=== PATIENT | female | born 1935 | race Caucasian/White ===

== ENCOUNTER 2018-03-14 09:12 | Emergency (ER) | payer OTHER ==
[2018-03-14 09:27] VITALS: BP 195/77; TEMP 97.8; BMI 24.0
--- NOTE | 2018-03-14 09:51 | ED.PDOC ---
General ED Provider: Dr. ASHLEY BURTON Chief Complaint: Hypertension Stated Complaint: Problems with BP elevation. Apparently given Clonidine to use as needed for BP elevation which takes sporadically when BP becomes elevated. Expresses frustation oven problems with her BP and her treatment by her PCP in [facility]. Has been to several ERs over past several days for treatment.Stated despite taking her prescribed meds she has taken clonidine periodically but this does not keep her BP controlled. States she taked Coreg 3.125 mg bid and Nifedipine 60 mg daily and prn clonidine. Time Seen by Physician: 09:30 Mode of Arrival: Ambulance Information Source: Patient, EMT Exam Limitations: No limitations Primary Care Provider: NICKTEODORO STRICKLAND Seen Within Last 72 Hours for Same Complaint By: ED Nursing and Triage Documentation Reviewed and Agree: Yes Reviewed sepsis parameters & appropriate labs ordered?: Yes System Inflammatory Response Syndrome: Not Applicable Sepsis Protocol: For patient's 13 years and over: Temp is 96.8 and below OR 101 and greater Pulse >90 BPM Resp >20/minute Acutely Altered Mental Status Are patient's symptoms suggestive of a new infection, such as: -Pneumonia -Skin, Soft Tissue -Endocarditis -UTI -Bone, Joint Infection -Implantable Device -Acute Abdominal Infection -Wound Infection -Meningitis -Blood Stream Catheter Infection -Unknown Cardiovascular Complaint Exam - Hypertension Complaint/Exam Onset/Duration: for several years Symptoms Are: Still present Timing: Intermittent (8 AM today 195/89 ; 6:55 AM 170/74 HR 71; 9 PM yesterday 145/58 HR 72;) Aggravating: Reports: Exertion Alleviating: Reports: None Associated Signs and Symptoms: Reports: Anxiety. Denies: Chest pain, Vision changes, Recent stress, Headache, Numbness, Tingling, Weakness, Dizziness, Short of air, Swelling Cardiac Risk Factors: Reports: Hypertension, Diabetes, Family history Recent Change in Medications: Yes A/V [place]: No Papilledema Present: No JVD Present: No Carotid Bruit Present: No Femoral Pulses Bounding: No Differential Diagnoses: Hypertension Review of Systems - Review Of Systems Constitutional: Reports: Weakness Eyes: Reports: No symptoms Ears, Nose, Mouth, Throat: Reports: No symptoms Respiratory: Reports: No symptoms Cardiac: Reports: No symptoms GI: Reports: No symptoms : Reports: No symptoms Musculoskeletal: Reports: No symptoms Skin: Reports: No symptoms Neurological: Reports: No symptoms Endocrine: Reports: No symptoms Hematologic/Lymphatic: Reports: No symptoms All Other Systems: Reviewed and Negative Past Medical History - Past Medical History Endocrine: Reports: Unknown Cardiovascular: Reports: Hypertension Respiratory: Reports: Unknown Hematological: Reports: Unknown Gastrointestinal: Reports: Unknown Genitourinary: Reports: Unknown Neuro/Psych: Reports: Unknown Musculoskeletal: Reports: Unknown Cancer: Reports: Unknown Last Menstrual Period: unknown - Surgical History General Surgical History: Reports: Unknown - Family History Family History: Reports: Unknown - Social History Smoking Status: Never smoker Hx Substance Use: No Alcohol Screening: None Lives: Alone Physical Exam - Physical Exam Appearance: Well-appearing, No pain distress, Well-nourished Ill-appearing: None Pain Distress: None Eyes: ANTHONY, EOMI, Conjunctiva clear ENT: Ears normal, Nose normal, Oropharynx normal Respiratory: Airway patent, Breath sounds clear, Breath sounds equal, Respirations nonlabored Cardiovascular: RRR, Pulses normal, No rub, No murmur GI/: Soft, Nontender, No masses, Bowel sounds normal, No Organomegaly Musculoskeletal: Normal strength, ROM intact, No edema, No calf tenderness Skin: Warm, Dry, Normal color Neurological: Sensation intact, Motor intact, Reflexes intact, Cranial nerves intact, Alert, Oriented Psychiatric: Affect appropriate, Mood appropriate Re-Evaluation - Re-Evaluation Time of Re-Evaluation: 13:30 Status: Improved Vital Signs Stable: Yes Appearance: NAD Lungs: Clear Skin: Warm and Dry Neuro: Alert and Oriented X3 CV: RRR Critical Care Note - Critical Care Note Total Time (mins): 60 Course - Course Hematology/Chemistry: 03/14/18 09:55 03/14/18 09:55 Orders, Labs, Meds: Lab Review 03/14/18 03/14/18 03/14/18 09:55 09:55 10:50 WBC 11.74 H RBC 4.47 Hgb 12.6 Hct 37.4 MCV 83.7 MCH 28.2 MCHC 33.7 RDW Coeff of Dione 13.5 Plt Count 344 Immature Gran % (Auto) 0.3 Neut % (Auto) 80.3 Lymph % (Auto) 12.9 [place] % (Auto) 4.3 Eos % (Auto) 1.8 Baso % (Auto) 0.4 Immature Gran # (Auto) 0.0 Neut # (Auto) 9.4 H Lymph # (Auto) 1.5 [place] # (Auto) 0.5 Eos # (Auto) 0.2 Baso # (Auto) 0.1 Sodium 132 L Potassium 3.8 Chloride 95 L Carbon Dioxide 25 Anion Gap 15.8 BUN 6 L Creatinine 0.72 Estimated GFR (MDRD) 77.00 BUN/Creatinine Ratio 8.33 Glucose 178 H Calcium 9.9 Total Bilirubin 0.5 AST 23 ALT 41 Alkaline Phosphatase 106 Total Protein 7.4 Albumin 3.8 Globulin 3.6 Albumin/Globulin Ratio 1.06 Urine Color Yellow Urine Clarity Clear Urine pH 7.5 Ur Specific [place] 1.020 Urine Protein Trace Urine Glucose (UA) Negative Urine Ketones 1+ Urine Blood Negative Urine Nitrite Negative Urine Bilirubin Negative Urine Urobilinogen 0.2 Ur Leukocyte Esterase Negative Urine Microscopic RBC 0-2 Ur Squamous Epith Cells Not present Orders Category Date Time Status EKG-(ED ONLY) Stat CARDIO 03/14/18 11:35 Completed ACCUCHECK (ED) [ED ACCUCHECK ASSESSMENT] .ONCE EMERGENCY 03/14/18 12:47 Active CBC W/ AUTO DIFF Stat LAB 03/14/18 09:55 Completed CMP [COMPREHENSIVE METABOLIC PANEL] Stat LAB 03/14/18 09:55 Completed UA [URINALYSIS C & S IF INDICATED] Stat LAB 03/14/18 10:50 Completed Hydralazine HCl [Apresoline] MEDS 03/14/18 11:32 Discontinued 50 mg PO ONCE STA CHEST, 1V AP ONLY Stat RADS 03/14/18 09:41 Taken Medications Discontinued Medications Generic Name Dose Route Start Last Admin Trade Name Freq PRN Reason Stop Dose Admin Hydralazine HCl 50 mg 03/14/18 11:32 03/14/18 11:46 Apresoline PO 03/14/18 11:33 50 mg ONCE STA Administration Vital Signs: Temp Pulse Resp BP Pulse Ox 03/14/18 09:13 97.8 F 65 20 195/77 H 94 L ANDER Risk Score ANDER Risk Score: Risk Score Odds of by 30D 0 0.1 (0.1-0.2) 1 0.3 (0.2-0.3) 2 0.4 (0.3-0.5) 3 0.7 (0.6-0.9) 4 1.2 (1.0-1.5) 5 2.2 (1.9-2.6) 6 3.0 (2.5-3.6) 7 4.8 (3.8-6.1) Departure - Departure Time of Disposition: 14:10 Disposition: HOME SELF-CARE Discharge Problem: Hypertension, Type II diabetes mellitus Instructions: Chronic Hypertension (ED), Type 2 Diabetes in Adults (ED) Condition: Good Pt referred to PMD for follow-up: Yes (Discussed follow up care) IPMP verified?: No Additional Instructions: Give options of physicians to chose from Needs close follow up care Rx Hydralazine 10 mg to take twice daily beginning in AM Return to ER as needed Allergies/Adverse Reactions: Allergies No Known Allergies Allergy (Unverified 03/14/18 09:27) Home Medications: Ambulatory Orders Hydralazine HCl [Apresoline] 10 mg PO Q8H #20 tablet 03/14/18 Disposition Discussed With: Patient, Family
[2018-03-14] MEDS ORDERED: APRESOLINE PO STA (11:32)
--- NOTE | 2018-03-15 07:48 | DI ---
EXAM: Chest one view, frontal view only. HISTORY: Uncontrolled hypertension. COMPARISON: None available. FINDINGS: The heart size is normal. Calcifications present in a tortuous thoracic aorta. There is no pulmonary vascular congestion. The lungs are clear. No pleural effusion or pneumothorax is seen. No acute osseous abnormality is identified. Possible small hiatal hernia. IMPRESSION: No acute cardiopulmonary process.
== END 2018-03-14 14:36 | disposition home or self-care (01) ==
LOC: ED 09:12
DX: I10 Essential (primary) hypertension (principal); E11.9 Type 2 diabetes mellitus without complications; R53.1 Weakness; Z79.899 Other long term (current) drug therapy
CPT/HCPCS: 36415; 80053; 81001; 82962; 85025; 93005; 93010; 99284

== ENCOUNTER 2018-03-15 16:49 | Emergency (ER) ==
[2018-03-15 16:52] VITALS: BMI 24.0
[2018-03-15 16:55] VITALS: BP 137/83; TEMP 98.4
[2018-03-15] MEDS ORDERED: ZOFRAN 4 MG/2 ML IM STA (17:31)
--- NOTE | 2018-03-15 18:21 | ED.PDOC ---
General ED Provider: Dr. DONTA ROSA Chief Complaint: Nausea/Vomiting Stated Complaint: nausea Time Seen by Physician: 17:00 (seen with the staff) Mode of Arrival: Wheelchair Information Source: Patient, Family Exam Limitations: No limitations Nursing and Triage Documentation Reviewed and Agree: Yes Reviewed sepsis parameters & appropriate labs ordered?: No System Inflammatory Response Syndrome: Not Applicable Sepsis Protocol: For patient's 13 years and over: Temp is 96.8 and below OR 101 and greater Pulse >90 BPM Resp >20/minute Acutely Altered Mental Status Are patient's symptoms suggestive of a new infection, such as: -Pneumonia -Skin, Soft Tissue -Endocarditis -UTI -Bone, Joint Infection -Implantable Device -Acute Abdominal Infection -Wound Infection -Meningitis -Blood Stream Catheter Infection -Unknown GI Complaint Exam - Vomiting/Diarrhea Complaint/Exam Onset/Duration: 2 days was seen last night for samwe issue in the ED Symptoms Are: Still present Episodes of Vomiting over last 24 Hours: 0 Episodes of Diarrhea Over Last 24 Hours: 0 Initial Severity: Mild Current Severity: None Character of Vomiting: Reports: Non-bilious Aggravating: Reports: None Alleviating: Reports: None Associated Signs and Symptoms: Denies: Dizziness, Light-headedness, Melena, Hematemesis, Fever, Abdominal pain, Cramping Related History: Reports: Similar episode Related Surgical History: Reports: None Abdominal Findings: Present: None Kussmaul Respirations Present: No Differential Diagnoses: Viral Gastroenteritis Review of Systems - Review Of Systems Constitutional: Reports: No symptoms Eyes: Reports: No symptoms Ears, Nose, Mouth, Throat: Reports: No symptoms Respiratory: Reports: No symptoms Cardiac: Reports: No symptoms GI: Reports: Nausea : Reports: No symptoms Musculoskeletal: Reports: No symptoms Skin: Reports: No symptoms Neurological: Reports: No symptoms Endocrine: Reports: No symptoms Hematologic/Lymphatic: Reports: No symptoms All Other Systems: Reviewed and Negative Past Medical History - Past Medical History Previously Healthy: Yes Endocrine: Reports: Unknown Cardiovascular: Reports: Hypertension Respiratory: Reports: Unknown Hematological: Reports: Unknown Gastrointestinal: Reports: Unknown Genitourinary: Reports: Unknown Neuro/Psych: Reports: Unknown Musculoskeletal: Reports: Unknown Cancer: Reports: Unknown Last Menstrual Period: none - Surgical History General Surgical History: Reports: None, Unknown - Family History Family History: Reports: None, Unknown - Social History Smoking Status: Never smoker Hx Substance Use: No Alcohol Screening: None Physical Exam - Physical Exam Appearance: Well-appearing, No pain distress, Well-nourished Eyes: ANTHONY, EOMI, Conjunctiva clear ENT: Ears normal, Nose normal, Oropharynx normal Respiratory: Airway patent, Breath sounds clear, Breath sounds equal, Respirations nonlabored Cardiovascular: RRR, Pulses normal, No rub, No murmur GI/: Soft, Nontender, No masses, Bowel sounds normal, No Organomegaly Musculoskeletal: Normal strength, ROM intact, No edema, No calf tenderness Skin: Warm, Dry, Normal color Neurological: Sensation intact, Motor intact, Reflexes intact, Cranial nerves intact, Alert, Oriented Psychiatric: Affect appropriate, Mood appropriate Critical Care Note - Critical Care Note Total Time (mins): 0 Course - Course Hematology/Chemistry: 03/15/18 17:44 03/15/18 17:44 Orders, Labs, Meds: Lab Review 03/15/18 03/15/18 17:44 17:44 WBC 10.77 H RBC 4.71 Hgb 13.4 Hct 39.0 MCV 82.8 MCH 28.5 MCHC 34.4 RDW Coeff of Dione 14.0 Plt Count 341 Immature Gran % (Auto) 0.4 Neut % (Auto) 71.8 Lymph % (Auto) 17.8 [place] % (Auto) 8.2 Eos % (Auto) 1.5 Baso % (Auto) 0.3 Immature Gran # (Auto) 0.0 Neut # (Auto) 7.7 H Lymph # (Auto) 1.9 [place] # (Auto) 0.9 Eos # (Auto) 0.2 Baso # (Auto) 0.0 Sodium 131 L Potassium 3.4 L Chloride 95 L Carbon Dioxide 24 Anion Gap 15.4 BUN 10 Creatinine 0.75 Estimated GFR (MDRD) 74.00 BUN/Creatinine Ratio 13.33 Glucose 232 H Calcium 9.5 Total Bilirubin 0.5 AST 18 ALT 33 Alkaline Phosphatase 90 Total Creatine Kinase 26 Troponin I < 0.0100 Total Protein 7.1 Albumin 3.7 Globulin 3.4 Albumin/Globulin Ratio 1.09 Orders Category Date Time Status EKG-(ED ONLY) Stat CARDIO 03/15/18 17:26 Ordered CBC W/ AUTO DIFF Stat LAB 03/15/18 17:44 Completed COMPREHENSIVE METABOLIC PANEL Stat LAB 03/15/18 17:44 Completed CREATINE KINASE Stat LAB 03/15/18 17:44 Completed TROPONIN I Stat LAB 03/15/18 17:44 Completed URINALYSIS C & S IF INDICATED Stat LAB 03/15/18 17:25 Uncollected Ondansetron HCl/Pf [Zofran 4 mg/2 ml] MEDS 03/15/18 17:31 Discontinued 4 mg IM ONCE STA Medications Discontinued Medications Generic Name Dose Route Start Last Admin Trade Name Freq PRN Reason Stop Dose Admin Ondansetron HCl 4 mg 03/15/18 17:31 03/15/18 17:36 Zofran 4 Mg/2 Ml IM 03/15/18 17:32 4 mg ONCE STA Administration Vital Signs: Temp Pulse Resp BP Pulse Ox 03/15/18 16:52 98.4 F 100 H 18 137/83 94 L Departure - Departure Time of Disposition: 19:00 Disposition: HOME SELF-CARE Discharge Problem: Nausea Uncontrolled diabetes mellitus Qualifiers: Diabetes mellitus type: type 2 Instructions: Acute Nausea and Vomiting (ED) Condition: Good Pt referred to PMD for follow-up: Yes IPMP verified?: No Allergies/Adverse Reactions: Allergies No Known Allergies Allergy (Verified 03/15/18 16:55) Home Medications: Ambulatory Orders Hydralazine HCl [Apresoline] 10 mg PO Q8H #20 tablet 03/14/18 Carvedilol [Coreg] 6.25 mg PO BID 03/15/18 Clonidine HCl [Catapres] 0.1 mg PO PRN PRN 03/15/18 Metformin HCl [Fortamet] 500 mg PO DAILY 03/15/18 Nifedipine [Nifedipine ER] 60 mg PO DAILY 03/15/18
== END 2018-03-15 18:39 | disposition home or self-care (01) ==
LOC: ED 16:49
DX: R11.2 Nausea with vomiting, unspecified (principal); E11.9 Type 2 diabetes mellitus without complications; I10 Essential (primary) hypertension; Z79.899 Other long term (current) drug therapy
CPT/HCPCS: 36415; 80053; 82550; 84484; 85025; 93005; 93010; 96372; 99283